=== PATIENT | male | born 1990 | race Caucasian/White ===

== ENCOUNTER 2020-05-13 15:53 | Emergency (ER) | payer BC ==
[~2020-05-13] VITALS: Ht 180.3 cm; Wt 74.8 kg
[2020-05-13 16:10] VITALS: BP 144/89
== END 2020-05-13 18:13 | disposition home or self-care (01) ==
LOC: ER 15:53
DX: S00.12XA Contusion of left eyelid and periocular area, initial encounter (principal); M54.2 Cervicalgia; W18.39XA Other fall on same level, initial encounter; Y93.89 Activity, other specified; Y92.89 Other specified places as the place of occurrence of the external cause; Y99.8 Other external cause status
CPT/HCPCS: 70450-TC; 70486-TC; 72125-TC